=== PATIENT | female | born 1970 | race Two or more races ===

== ENCOUNTER 2018-02-27 16:56 | Emergency (ER) | payer MEDICAID ==
[~2018-02-27] VITALS: Ht 160 cm; Wt 59.0 kg
[2018-02-27 17:07] VITALS: BP 117/90
[2018-02-27] MEDS ORDERED: IBUPROFEN 400 MG TABLET PO ONE (17:30)
[2018-02-27] MEDS ORDERED: IBUPROFEN 400 MG TABLET ONE (17:31)
== END 2018-02-27 18:30 | disposition home or self-care (01) ==
LOC: ER 16:57
DX: S60.222A Contusion of left hand, initial encounter (principal); J45.909 Unspecified asthma, uncomplicated; N83.209 Unspecified ovarian cyst, unspecified side; W18.00XA Striking against unspecified object with subsequent fall, initial encounter; Y93.89 Activity, other specified; Y92.89 Other specified places as the place of occurrence of the external cause; Y99.8 Other external cause status
CPT/HCPCS: 73130-TC; A4606; Z7610

== ENCOUNTER 2018-04-12 13:13 | Emergency (ER) | payer MEDICAID ==
[~2018-04-12] VITALS: Ht 160 cm; Wt 44.0 kg
[2018-04-12 13:23] VITALS: BP 118/68
[2018-04-12] MEDS ORDERED: KETOROLAC TROMETHAMINE INJ 60 MG/2 ML VIAL IM ONE ×2 (13:58→14:00)
== END 2018-04-12 14:35 | disposition home or self-care (01) ==
LOC: ER 13:18
DX: M79.674 Pain in right toe(s) (principal); J45.909 Unspecified asthma, uncomplicated; Z98.890 Other specified postprocedural states
CPT/HCPCS: 73630; 96372; 99284; A4606; J1885; Z7610

== ENCOUNTER 2018-10-28 23:01 | Emergency (ER) | payer MEDICAID ==
[~2018-10-28] VITALS: Ht 160 cm; Wt 41.7 kg
[2018-10-29] MEDS ORDERED: ACETAMINOPHEN ES 500 MG TABLET PO ONE
[2018-10-29] MEDS ORDERED: ACETAMINOPHEN ES 500 MG TABLET ONE (00:06)
--- NOTE | 2018-10-29 00:06 | NUR ---
BIBFAMILY C/O "FLU-LIKE SYMPTOMS" X 3 DAYS. PT AMBULATED TO BED AND TOLERATED WELL. PT PLACED ON MONITOR WITH VS WNL. AWAITING MD GARCIA.
[2018-10-29 00:12] LABS: BASOPHILS % (AUTO) 0.4 % (0.0-2.0); EOSINOPHILS % (AUTO) 0.6 % (0.0-6.0); HEMATOCRIT 33 % (33-45); HEMOGLOBIN 11.3 g/dL (11.5-14.8); LYMPHOCYTES # (AUTO) 0.6 /CMM (0.8-4.8); LYMPHOCYTES % (AUTO) 17.2 % (20.0-44.0); MEAN CORPUSCULAR HGB CONC 35 g/dl (31.0-36.0); MEAN CORPUSCULAR VOLUME 89 fL (82-100); MONOCYTES # (AUTO) 0.5 /CMM (0.1-1.30); MONOCYTES % (AUTO) 12.4 % (2.0-12.0); NEUTROPHILS # (AUTO) 2.6 /CMM (1.8-8.9); NEUTROPHILS % (AUTO) 69.4 % (43.0-81.0); PLATELET COUNT (AUTO) 174 /CMM (150-450); RED BLOOD CELL COUNT(AUTO) 3.69 MIL/uL (4.0-5.2); WHITE BLOOD COUNT (AUTO) 3.7 K/uL (4.3-11.0)
[2018-10-29 00:24] LABS: CALCIUM, SERUM 8.5 mg/dL (8.5-10.1); CREATININE 0.6 mg/dL (0.6-1.3); POTASSIUM 3.7 mmol/L (3.5-5.1)
[2018-10-29] MEDS ORDERED: IV NS 0.9% 1,000 ML BAG IV ONE (00:30)
[2018-10-29] MEDS ORDERED: ONDANSETRON HCL/PF 4 MG/2 ML VIAL IVP ONE (00:30)
[2018-10-29] MEDS ORDERED: ONDANSETRON HCL/PF 4 MG/2 ML VIAL ONE (00:39)
[2018-10-29 01:37] VITALS: BP 105/75
--- NOTE | 2018-10-29 01:38 | NUR ---
Patient discharged to home in stable condition. Written and verbal after care instructions given. Patient verbalizes understanding of instruction. pt. ambulatory with a steady gait.
== END 2018-10-29 01:38 | disposition home or self-care (01) ==
LOC: ER 23:03
DX: B34.9 Viral infection, unspecified (principal); J45.909 Unspecified asthma, uncomplicated; Z98.890 Other specified postprocedural states
CPT/HCPCS: 36415; 71045; 80048; 85025; 87804 ×2; 96374; 99284; A4606; J2405; J7030; Z7610; 87400

== ENCOUNTER 2019-12-15 14:40 | Emergency (ER) | payer MEDICAID ==
[~2019-12-15] VITALS: Ht 160 cm; Wt 44.9 kg
--- NOTE | 2019-12-15 14:59 | NUR ---
AT BEDSIDE FOR EVAL
[2019-12-15] MEDS ORDERED: IBUPROFEN 600 MG TABLET PO ONE ×2 (15:00→15:07)
--- NOTE | 2019-12-15 15:19 | NUR ---
PT REC'D TO ER C/O PAIN LEFT BIG TOE PT DROPPED TABLE THIS MORNING GIVEN MOTRIN 600 MG PO FOR PAINAWAITING EVALUATION BY ER PROVIDER.
--- NOTE | 2019-12-15 16:20 | NUR ---
Patient discharged to home in stable condition. Written and verbal after care instructions given. Patient verbalizes understanding of instruction.
[2019-12-15 16:27] VITALS: BP 121/70
== END 2019-12-15 16:28 | disposition home or self-care (01) ==
LOC: ER 14:43
DX: S90.112A Contusion of left great toe without damage to nail, initial encounter (principal); J45.909 Unspecified asthma, uncomplicated; W18.39XA Other fall on same level, initial encounter; Y93.89 Activity, other specified; Y92.89 Other specified places as the place of occurrence of the external cause; Y99.0 Civilian activity done for income or pay
CPT/HCPCS: 73660-TC

== ENCOUNTER 2020-12-05 18:35 | Emergency (ER) | payer MEDICAID ==
[~2020-12-05] VITALS: Ht 157.5 cm; Wt 47.6 kg
--- NOTE | 2020-12-05 18:50 | NUR ---
RLQ ABDOMINAL PAIN, NAUSEA THAT STARTED LAST NIGHT. PATIENT A/OX4, BREATHING EVEN AND UNLABORED, NO SOB NOTED. NEEDS ATTENDED.
--- NOTE | 2020-12-05 19:20 | NUR ---
SYSTEMS LEAD AT BEDSIDE FOR BLOOD DRAW, UA GIVEN. ENDORSED TO GETACHEW MURRAY
[2020-12-05 19:24] LABS: BASOPHILS # (AUTO) 0.1 /CMM (0.0-0.2); EOSINOPHILS % (AUTO) 1.4 % (0.0-6.0); HEMATOCRIT 33 % (33-45); HEMOGLOBIN 11.1 g/dL (11.5-14.8); LYMPHOCYTES # (AUTO) 1.3 /CMM (0.8-4.8); LYMPHOCYTES % (AUTO) 25.5 % (20.0-44.0); MEAN CORPUSCULAR HGB CONC 34 g/dl (31.0-36.0); MEAN CORPUSCULAR VOLUME 89 fL (82-100); MONOCYTES # (AUTO) 0.3 /CMM (0.1-1.30); MONOCYTES % (AUTO) 5.6 % (2.0-12.0); NEUTROPHILS # (AUTO) 3.3 /CMM (1.8-8.9); NEUTROPHILS % (AUTO) 66.5 % (43.0-81.0); PLATELET COUNT (AUTO) 207 /CMM (150-450); RED BLOOD CELL COUNT(AUTO) 3.66 MIL/uL (4.0-5.2); WHITE BLOOD COUNT (AUTO) 4.9 K/uL (4.3-11.0)
[2020-12-05 19:26] LABS: BILIRUBIN,URINE Negative (NEGATIVE); COLOR,URINE YELLOW (YELLOW); LEUKOCYTE ESTERASE ,URINE Trace (NEGATIVE); NITRITE, URINE Negative (NEGATIVE); PROTEIN,URINE Negative (NEGATIVE); UGLUCOSE Negative (NEGATIVE); UROBILINOGEN,URINE 0.2 EU/dL (0.2)
[2020-12-05 19:39] LABS: ALBUMIN 3.7 g/dL (3.4-5.0); BILIRUBIN,DIRECT 0.1 mg/dL (0.0-0.2); BILIRUBIN,TOTAL 0.6 mg/dL (0.2-1.0); CALCIUM, SERUM 8.4 mg/dL (8.5-10.1); CREATININE 0.6 mg/dL (0.6-1.3); POTASSIUM 3.4 mmol/L (3.5-5.1); TOTAL PROTEIN, SERUM 6.8 g/dL (6.4-8.2)
[2020-12-05 19:41] LABS: BACTERIA,URINE Rare /HPF (None Seen); RBC,URINE 0-2 /HPF (0-2)
[2020-12-05] MEDS ORDERED: KETOROLAC TROMETHAMINE INJ 30 MG/ML VIAL ONE (19:56)
[2020-12-05] MEDS ORDERED: IOHEXOL-300 100 ML VIAL IV ONE (19:59)
[2020-12-05] MEDS ORDERED: CT SWABBABLE VALVE TRANS SET 1 EA INFUS.SET MC ONE (19:59)
[2020-12-05] MEDS ORDERED: IV NS 0.9% 250 ML IV ONE (19:59)
[2020-12-05] MEDS: KETOROLAC TROMETHAMINE INJ 30 MG/ML VIAL IV ONE (20:13)
[2020-12-05] MEDS: IV NS 0.9% 1,000 ML BAG IV ONE (20:13)
--- NOTE | 2020-12-05 20:13 | NUR ---
PATIENT TAKEN TO CT.
[2020-12-05] MEDS ORDERED: CEPHALEXIN MONOHYDRATE 500 MG CAPSULE PO ONE (20:59)
[2020-12-05] MEDS ORDERED: CEPH500T PO (21:02)
[2020-12-05] MEDS ORDERED: IBUP-1955 PO (21:02)
[2020-12-05] MEDS: CEPHALEXIN MONOHYDRATE 500 MG CAPSULE PO ONE (21:07)
[2020-12-05 21:28] VITALS: BP 133/78
--- NOTE | 2020-12-05 21:28 | NUR ---
IV removed. Catheter intact and site benign. Pressure and 4x4 applied to site. No bleeding noted.
--- NOTE | 2020-12-05 21:28 | NUR ---
Patient discharged to home in stable condition. Written and verbal after care instructions given. Patient verbalizes understanding of instruction.
== END 2020-12-05 21:31 | disposition home or self-care (01) ==
LOC: ER 18:37
DX: R10.31 Right lower quadrant pain (principal); N39.0 Urinary tract infection, site not specified; J45.909 Unspecified asthma, uncomplicated; Z98.890 Other specified postprocedural states
CPT/HCPCS: 36415; 74177; 76856; 80048; 80076; 81001; 83690; 84703; 85025; 87086; 96361; 96374; 99285; J1885; J7030; J7050; Q9967

== ENCOUNTER 2021-03-11 21:20 | Emergency (ER) | payer MEDICAID ==
[~2021-03-11] VITALS: Ht 157.5 cm; Wt 49.9 kg
[~2021-03-11 21:20] MED LIST: CEPH500T PO; IBUP-1955 PO
[2021-03-11 21:46] VITALS: BP 134/77
[2021-03-11] MEDS ORDERED: PSEU120T57 PO (21:56)
[2021-03-11] MEDS ORDERED: NEOM10DR11 RIGHT EAR (21:56)
== END 2021-03-11 22:25 | disposition home or self-care (01) ==
LOC: ER 21:20
DX: J32.9 Chronic sinusitis, unspecified (principal); H60.92 Unspecified otitis externa, left ear; J45.909 Unspecified asthma, uncomplicated; Z98.890 Other specified postprocedural states; Z79.899 Other long term (current) drug therapy

== ENCOUNTER 2022-03-26 09:04 | Emergency (ER) | payer MEDICAID ==
[~2022-03-26] VITALS: Ht 160 cm; Wt 49.9 kg
[~2022-03-26 09:04] MED LIST changes: +NEOM10DR11 RIGHT EAR; +PSEU120T57 PO
--- NOTE | 2022-03-26 09:25 | NUR ---
COVID PCR SWAB DONE AND SENT TO LAB
--- NOTE | 2022-03-26 09:27 | NUR ---
DR PERRY AT THE BEDSIDE
[2022-03-26] MEDS ORDERED: BENZ-13 PO (09:55)
[2022-03-26] MEDS ORDERED: DEXAMETHASONE SOD PHOSPHATE 10 MG/ML VIAL IV ONE (10:00)
[2022-03-26] MEDS ORDERED: DEXAMETHASONE SOD PHOSPHATE 10 MG/ML VIAL ONE (10:01)
--- NOTE | 2022-03-26 10:10 | NUR ---
Patient discharged to home in stable condition. Written and verbal after care instructions given. Patient verbalizes understanding of instruction.
[2022-03-26 10:18] VITALS: BP 111/62
[2022-03-26] MEDS ORDERED: DEXAMETHASONE SOD PHOSPHATE 10 MG/ML VIAL IM ONE (10:30)
== END 2022-03-26 10:10 | disposition home or self-care (01) ==
LOC: ER 09:08
DX: J02.8 Acute pharyngitis due to other specified organisms (principal); B97.89 Other viral agents as the cause of diseases classified elsewhere; Z20.822 Contact with and (suspected) exposure to COVID-19; J45.909 Unspecified asthma, uncomplicated
CPT/HCPCS: 96372; 99283; C9803; J1100; U0003